=== PATIENT | male | born 1990 | race African-American/Black ===

== ENCOUNTER 2018-12-26 13:57 | Emergency (ER) | payer OTHER ==
[~2018-12-26] VITALS: Ht 182.9 cm; Wt 79.4 kg
[~2018-12-26 13:57] MED LIST: AZITHROMYCIN 2250 MG PO; IBUPROFEN 600600 M1 PO; NOHOMEMEDICATIONS; PREDNISONE 20 M20 MG PO; PROAIR HFA8.5 GM INH; ULTRAM 50MG TAB50 MG PO; VENTOLIN HFA 1818 GM INH; ZOFRAN ODT4 MG PO; ZPAK PO
[2018-12-26 13:58] VITALS: BP 122/82
[2018-12-26] MEDS ORDERED: NAPROXEN DELAY500 M1 PO (22:15)
== END 2018-12-26 15:38 | disposition home or self-care (01) ==
LOC: ER 13:57
DX: Z53.21 Procedure and treatment not carried out due to patient leaving prior to being seen by health care provider (principal)

== ENCOUNTER 2018-12-26 21:22 | Emergency (ER) | payer OTHER ==
[~2018-12-26] VITALS: Ht 182.9 cm; Wt 81.7 kg
[2018-12-26 21:23] VITALS: BP 141/75
[2018-12-26] MEDS ORDERED: NAPROXEN DELAY500 M1 PO (22:15)
== END 2018-12-26 22:50 | disposition home or self-care (01) ==
LOC: ER 21:22
DX: M77.9 Enthesopathy, unspecified (principal); J45.909 Unspecified asthma, uncomplicated

== ENCOUNTER 2020-03-20 22:02 | Emergency (ER) | payer OTHER ==
[~2020-03-20] VITALS: Ht 182.9 cm; Wt 72.6 kg
[~2020-03-20 22:02] MED LIST changes: +NAPROXEN DELAY500 M1 PO
[2020-03-20] MEDS ORDERED: NORFLEX100 MG PO (23:19)
[2020-03-20] MEDS ORDERED: NAPROSYN500 MG PO (23:19)
[2020-03-20 23:35] VITALS: BP 137/93
== END 2020-03-20 23:36 | disposition home or self-care (01) ==
LOC: ER 22:02
DX: S39.012A Strain of muscle, fascia and tendon of lower back, initial encounter (principal); J45.909 Unspecified asthma, uncomplicated; X50.1XXA Overexertion from prolonged static or awkward postures, initial encounter; Y93.89 Activity, other specified; Y92.89 Other specified places as the place of occurrence of the external cause; Y99.8 Other external cause status

== ENCOUNTER 2020-10-26 01:57 | Emergency (ER) | payer OTHER ==
[~2020-10-26] VITALS: Ht 180.3 cm; Wt 77.1 kg
[~2020-10-26 01:57] MED LIST changes: +NAPROSYN500 MG PO; +NORFLEX100 MG PO
[2020-10-26 01:59] VITALS: BP 130/84
[2020-10-26] MEDS ORDERED: DOXYCYCLINE 10100 MG PO (02:59)
== END 2020-10-26 03:35 | disposition home or self-care (01) ==
LOC: ER 01:57
PROVIDERS: Emergency Medicine
DX: N34.2 Other urethritis (principal); J45.909 Unspecified asthma, uncomplicated

== ENCOUNTER 2020-11-20 21:15 | Emergency (ER) | payer OTHER ==
[~2020-11-20] VITALS: Ht 182.9 cm; Wt 72.6 kg
[~2020-11-20 21:15] MED LIST changes: +DOXYCYCLINE 10100 MG PO
[2020-11-20 21:41] LABS: URINE BILIRUBIN NEGATIVE (Negative); URINE BLOOD NEGATIVE (Negative); URINE CLARITY CLEAR; URINE COLOR YELLOW; URINE GLUCOSE-RANDOM* NEGATIVE (Negative); URINE KETONES NEGATIVE (Negative); URINE NITRITE-REFLEX NEGATIVE (Negative); URINE PROTEIN (DIPSTICK) NEGATIVE (Negative); URINE SPECIFIC GRAVITY <= 1.005 (1.005-1.035); URINE UROBILINOGEN 0.2 E.U./dl (0.2-1.0)
[2020-11-20 21:44] LABS: URINE LEUKOCYTES-REFLEX 2+ (Negative)
[2020-11-20 21:51] LABS: AMORPHOUS PHOSPHATES Moderate /LPF (None Seen); SQUAMOUS 0-3 Few /LPF (0-3)
[2020-11-20 21:52] LABS: URINE RBC None Seen /HPF (NONE SEEN); URINE WBC-REFLEX 0-5 Rare /HPF (0-5)
[2020-11-20 21:53] LABS: BACTERIA-REFLEX 1-9 Few /HPF (None Seen)
[2020-11-20 21:54] LABS: HYALINE CASTS 0-3 Few /LPF (None Seen)
[2020-11-20] MEDS ORDERED: DOXYCYCLINE 10100 MG PO (22:23)
[2020-11-20 22:52] VITALS: BP 131/89
== END 2020-11-20 22:53 | disposition home or self-care (01) ==
LOC: ER 21:15
PROVIDERS: Physician Assistant
DX: N34.2 Other urethritis (principal); J45.909 Unspecified asthma, uncomplicated

== ENCOUNTER 2021-03-04 06:39 | Emergency (ER) | payer OTHER ==
[~2021-03-04] VITALS: Ht 190.5 cm; Wt 77.1 kg
[2021-03-04 07:57] LABS: BASOPHILS 0.8 % (0.0-2.0); EOSINOPHILS 8.9 % (0.0-3.0); HEMATOCRIT 39.4 % (42.0-52.0); HEMOGLOBIN 12.9 gm/dL (14.0-18.0); LYMPHOCYTES 54.7 % (24.0-44.0); MCH 27.9 pg (26.0-34.0); MCHC 32.6 g/dL (28.0-37.0); MCV 85.6 fL (80.0-100.0); MONOCYTES 10.6 % (1.0-8.0); PLATELET COUNT 205 thou/uL (150-400); RBC 4.61 mil/uL (4.50-6.00); RDW 14.1 % (10.5-14.5)
[2021-03-04 08:00] LABS: CALCIUM 8.7 mg/dL (8.5-10.1); CREATININE 1.2 mg/dL (0.7-1.3); POTASSIUM 4.1 mmol/L (3.5-5.1)
[2021-03-04 08:07] LABS: ALBUMIN 3.7 g/dL (3.4-5.0); TOTAL BILIRUBIN 0.3 mg/dL (0.2-1.0)
[2021-03-04 08:09] LABS: URINE BILIRUBIN NEGATIVE (Negative); URINE BLOOD NEGATIVE (Negative); URINE CLARITY CLEAR; URINE COLOR YELLOW; URINE GLUCOSE-RANDOM* NEGATIVE (Negative); URINE KETONES NEGATIVE (Negative); URINE LEUKOCYTES-REFLEX NEGATIVE (Negative); URINE NITRITE-REFLEX NEGATIVE (Negative); URINE PROTEIN (DIPSTICK) NEGATIVE (Negative); URINE SPECIFIC GRAVITY >= 1.030 (1.005-1.035); URINE UROBILINOGEN 0.2 E.U./dl (0.2-1.0)
[2021-03-04] MEDS ORDERED: PEPCID20 MG PO (08:26)
[2021-03-04 08:35] VITALS: BP 117/73
== END 2021-03-04 08:35 | disposition home or self-care (01) ==
LOC: ER 06:39
PROVIDERS: Emergency Medicine
DX: K29.70 Gastritis, unspecified, without bleeding (principal); R10.13 Epigastric pain; J45.909 Unspecified asthma, uncomplicated